=== PATIENT | female | born 1935 | race Caucasian/White ===

== ENCOUNTER 2018-01-09 08:57 | Day surgery (SDC) | payer BC, MEDICAID ==
[~2018-01-09] VITALS: Ht 152.4 cm; Wt 91.2 kg
[~2018-01-09 08:57] MED LIST: CEFAZOLIN SOD 1 GM/ ISO 50 ML PREMIX IV ONE
[2018-01-09] MEDS ORDERED: SEVOFLURANE 15 MIN GAS INH ONE (12:30)
[2018-01-09] MEDS ORDERED: NS IRRIG SOLN 1000 ML IR ONE (12:30)
[2018-01-09] MEDS ORDERED: ROCURONIUM BROMIDE 10 MG/ML (ZEMURON) IV ONE (12:30)
[2018-01-09] MEDS ORDERED: BUPIVACAINE /PF 0.25% 30 ML VIAL INJ ONE (12:30)
[2018-01-09] MEDS ORDERED: KETOROLAC TROMETHAMINE 30 MG VIAL IVP ONE (12:30)
[2018-01-09] MEDS ORDERED: DEXAMETHASONE SOD PHOSPHATE 4 MG/ML VIAL IVP ONE (12:30)
[2018-01-09] MEDS ORDERED: fentaNYL CITRATE 250 MCG/5 ML AMP IV ONE (12:30)
[2018-01-09] MEDS ORDERED: LR 1,000 ML IV.SOLN IV ONE (12:30)
[2018-01-09] MEDS ORDERED: PROPOFOL 200MG/ 20ML VIAL (DIPRIVAN) IV ONE (12:30)
[2018-01-09] MEDS ORDERED: ONDANSETRON HCL 4 MG/2 ML VIAL IVP ONE (12:30)
[2018-01-09] MEDS ORDERED: MIDAZOLAM HCL 5 MG/5 ML VIAL IVP ONE (12:30)
[2018-01-09] MEDS ORDERED: ISOSULFAN BLUE 5 ML VIAL (LYMPHAZURIN) INJ ONE (12:30)
[2018-01-09] MEDS ORDERED: CLINDAMYCIN 600 mg/50mL D5W 50 ML IV ONE (13:00)
[2018-01-09] MEDS ORDERED: LR 1,000 ML IV SCH (13:42)
[2018-01-09] MEDS ORDERED: HYDROmorphone 2 MG/ML VIAL IVP PRN ×2 (13:45)
[2018-01-09] MEDS ORDERED: MEPERIDINE HCL/PF 25 MG/ML DISP.SYRIN IVP PRN (13:45)
[2018-01-09] MEDS ORDERED: HYDROmorphone 1 MG INJ. 1 MG/ML AMPUL IVP PRN ×2 (13:45→16:45)
[2018-01-09] MEDS ORDERED: D5/0.45 NS 1,000 ML IV SCH (14:28)
[2018-01-09 15:40] VITALS: BP_SYST 122
[2018-01-09] MEDS ORDERED: HYDROcodone/ACETAMIN 5-325 MG TAB (NORCO/ VICODIN) PO PRN ×2 (16:45)
== END 2018-01-09 16:50 | disposition home or self-care (01) ==
LOC: SDS 08:57 → SMU 08:59 → EDSTATUS 12:00 → SDS 16:50
PROVIDERS: ATTEND Colon & Rectal Surgery
DX: C50.911 Malignant neoplasm of unspecified site of right female breast (principal); R59.0 Localized enlarged lymph nodes; E11.22 Type 2 diabetes mellitus with diabetic chronic kidney disease; I12.9 Hypertensive chronic kidney disease with stage 1 through stage 4 chronic kidney disease, or unspecified chronic kidney disease; N18.3 Chronic kidney disease, stage 3 (moderate); H40.2290 Chronic angle-closure glaucoma, unspecified eye, stage unspecified; H70.10 Chronic mastoiditis, unspecified ear; G89.29 Other chronic pain; H40.009 Preglaucoma, unspecified, unspecified eye; H91.90 Unspecified hearing loss, unspecified ear; E03.9 Hypothyroidism, unspecified; H25.0 Age-related incipient cataract; M54.16 Radiculopathy, lumbar region; E66.01 Morbid (severe) obesity due to excess calories; E11.40 Type 2 diabetes mellitus with diabetic neuropathy, unspecified; D64.9 Anemia, unspecified; Z79.84 Long term (current) use of oral hypoglycemic drugs; Z88.8 Allergy status to other drugs, medicaments and biological substances; Z79.899 Other long term (current) drug therapy; Z68.37 Body mass index [BMI] 37.0-37.9, adult
CPT/HCPCS: 19081; 19281; 19301; 38525; 78195; 82962; 88305; 88307; 88333; 88342; A9541; J1100; J1885; J2250; J2405; J2704; J3010; J3490 ×2; J7120; Q9968; 76098-TC; J0690